=== PATIENT | female | born 1960 | race Caucasian/White ===

== ENCOUNTER 2016-07-02 22:10 | Inpatient (IN) | payer OTHER ==
[~2016-07-02] VITALS: Ht 165.1 cm; Wt 158.9 kg
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
--- NOTE | ~2016-07-02 | HC ---
[facility] [place] [address] CONSULTATION Name: ERLIN HICKMAN Room #: 209-P ADM IN M.R.#: [id number] Admission: 07/03/16 Attend Phys: Zaire Tatum MD Discharge: Date of : 62 Report #: [id number] THIS REPORT FOR: //name// CC: Zaire Tatum [facility] physician/PCP REASON FOR CONSULTATION: Chest pain. HISTORY OF PRESENT ILLNESS: The patient is a 56-year-old female who presents with new onset chest heaviness radiating to her back, worse with activity. She has also had some fluttering in her chest. She has had some mild shortness of breath, but denies any PND or orthopnea. She denies presyncope or syncope. REVIEW OF SYSTEMS: GENERAL: No fevers or chills. HEENT: No blurred vision. CARDIOVASCULAR: As above. PULMONARY: No productive cough. GASTROINTESTINAL: Some epigastric discomfort. No nausea, vomiting. GENITOURINARY: No dysuria. MUSCULOSKELETAL: No myalgias or arthralgias. ENDOCRINE: No heat or cold intolerance. PAST MEDICAL HISTORY: Asthma, obesity. PAST SURGICAL HISTORY: Cholecystectomy. FAMILY HISTORY: Noncontributory. SOCIAL HISTORY: Does not smoke. ALLERGIES: Include BIAXIN. MEDICATIONS: Tylenol, multivitamin. REVIEW OF SYSTEMS: As above. PHYSICAL EXAMINATION: VITAL SIGNS: Temperature 36.2, pulse 54, respirations 16, blood pressure 123/70, sats 94%. GENERAL: She is in no acute distress. She is morbidly obese. HEENT: Oropharynx is clear. NECK: Supple, with no thyromegaly. HEART: Regular rate and rhythm with normal S1, S2. No S3, S4. She does not have elevated jugular venous pressure. She has no sternal discomfort. LUNGS: Clear bilaterally. ABDOMEN: Soft, nontender, nondistended with no hepatosplenomegaly. [facility] [address] [place] [address] CONSULTATION Name: ERLIN HICKMAN Room #: 209-P [facility] IN [facility]#: [id number] Admission: 07/03/16 Attend Phys: Zaire Tatum MD Discharge: Date of : 62 Report #: [id number] EXTREMITIES: There is some 1+ lower extremity edema. She has 2+ pulses. NEUROLOGIC: Cranial nerves 2-12 are intact. LABORATORY DATA: White count 6.2, hemoglobin 12.1, platelets 234. Her chemistries, potassium 3.9, creatinine 0.9. Troponins are negative x 3. BNP is 89. Urine is negative. Extremity ultrasounds show no DVT. Chest x-ray shows no acute process. In summary, 12-lead EKG shows sinus rhythm with no ischemic changes. IMPRESSION: In summary, the patient is a 56-year-old female with a history of morbid obesity, presenting with new onset chest heaviness and tightness associated with exertion. I would like to order an echocardiogram to evaluate her left ventricular size and function. Given her symptoms suggestive of possible unstable angina, I recommended proceeding with a cardiac catheterization as I think given her morbid obesity, the nuclear stress test will be of limited utility. I have discussed the details of the procedure including the risks, which include but not limited to bleeding, vascular damage, stroke or MT. She understands these risks and is willing to proceed. We will plan on this tomorrow. <ELECTRONICALLY SIGNED> By: uGy Rashid MD 07/04/16 1523 1312 0027 Guy Rashid MD /nt
--- NOTE | ~2016-07-02 | CATHLAB ---
[facility] [place] [address] INVASIVE PROCEDURE REPORT Name: ERLIN HICKMAN Ruma Room #: 209-P [facility] IN .#: [id number] Admission: 07/03/16 Attend Phys: Ruma Mathur Discharge: 07/05/16 Date of : 62 Date of Service: 07/04/16 0917 Report #: [id number] THIS REPORT FOR: //name// CC: Zaire DALEY physician/PCP DATE OF SERVICE: 07/04/2016 CARDIAC CATHETERIZATION REPORT INDICATION: Unstable angina. Full risks, benefits and alternatives of cardiac catheterization were explained to the patient. All questions were answered. Informed consent was obtained. A Barbeau test was performed on the right radial artery. The right wrist area was prepped and draped in a sterile manner. Lidocaine was given subcutaneously. A 5-Latvian sheath was inserted into the right radial artery via modified Seldinger technique. Nitroglycerin and verapamil was injected through the sheath. 5000 units of heparin was introduced through peripheral IV. CORONARY ANATOMY: The left main artery is a large caliber vessel, with no flow-limiting lesions. The LAD is a moderate-sized caliber vessel, travelling down the anterior wall and terminating in the apex. There were no flow-limiting lesions in the LAD. There are several small diagonal arteries, with no flow-limiting lesions. The left circumflex artery branches off into one obtuse marginal artery. There were no flow-limiting lesions in the left circumflex artery. The RCA is a moderate to large size caliber vessel, dominant. It originates from the noncoronary cusp. There were no flow-limiting lesions in the RCA. There is a PDA and posterolateral branch, with no flow-limiting lesions. A left ventriculogram was performed revealing normal LV systolic function, ejection fraction of 60%. The LVEDP is 30 mmHg. There is no gradient across the outflow tract. IMPRESSION: 1. Angiographically normal coronary arteries. [facility] [address] [place] [address] INVASIVE PROCEDURE REPORT Name: JOHNJOSSIEERLIN Room #: 209-P [facility] IN M.R.#: [id number] Admission: 07/03/16 Attend Phys: Ruma Mathur Discharge: 07/05/16 Date of : 62 Date of Service: 07/04/16916 Report #: [id number] 2. Normal LV systolic function. 3. Recommend medical therapy. <ELECTRONICALLY SIGNED> By: Godwin Carter MD 07/07/16 0814 6 1247 Godwin Carter MD /nt
--- NOTE | ~2016-07-02 | EKG ---
[address] [place] [address] ELECTROCARDIOGRAM REPORT Name: ERLIN HICKMAN Room #: 209-P ADM IN M.R.#: [id number] Admission: 07/03/16 Attend Phys: Zaire Tatum MD Discharge: Date of : 62 Report #: [id number] THIS REPORT FOR: //name// [facility] ED Test Date: 2016-07-02 Test Time: 22:15:45 Pat Name: ERLIN HICKMAN Department: Room: 209 Gender: F [employer]: LU : 1960 Requested By: Norma Bradley Order Number: [id number] MD: Jayesh William Measurements Intervals [place] Rate: 71 P: 53 MI: 165 QRS: -2 QRSD: 112 T: 10 QT: 436 QTc: 474 Interpretive Statements Sinus rhythm No significant abnormality Compared to ECG 03/28/2013 11:46:11 No significant changes Electronically Signed On 07-03-2016 8:35:45 CDT by Jayesh William [email or web address] <ELECTRONICALLY SIGNED> By: Jayesh William MD, [facility] 07/03/16 0835 14 14 Jayesh William MD, [facility] /EPI
[~2016-07-02 22:10] MED LIST: ALEVE220 M1 PO; APAP500 PO; CLIMARA TOP; COLACE100 MG; FLAGYL500 MG PO; HYDROCODON-ACE1 EAC7; IBUPROFEN 600600 M1 PO; IRON325; KEFLEX500 MG; MULTIVITAMINS1 EAC7 PO; NORCO 5-325 TA1 EACH PO; PENICILLIN VK500 M1; PROAIR HFA8.5 GM INH; ULTRAM 50MG TAB50 MG PO
[2016-07-02 22:13] VITALS: BP 135/89
[2016-07-02] MEDS ORDERED: UNICOMPLEX M TA1 TA1 PO (22:21)
[2016-07-02 23:01] LABS: HEMATOCRIT 35.6 % (37.0-47.0); HEMOGLOBIN 12.1 gm/dL (12.0-15.0); MCH 30.9 pg (26.0-34.0); MCV 90.8 fL (80.0-100.0); PLATELET COUNT 234 thou/uL (150-400); RBC 3.92 mil/uL (4.20-5.00); RDW 13.8 % (10.5-14.5); WBC 6.2 thou/uL (4.0-11.0)
[2016-07-02 23:02] LABS: MANUAL DIFF YES
[2016-07-02 23:11] LABS: ANION GAP 7 mmol/L (7-16); BUN 15 mg/dL (7-18); CALCIUM 8.9 mg/dL (8.5-10.1); CHLORIDE 106 mmol/L (98-107); CO2 29 mmol/L (21-32); CREATININE 0.9 mg/dL (0.6-1.0); GLUCOSE 122 mg/dL (74-106); POTASSIUM 3.9 mmol/L (3.5-5.1); SODIUM 142 mmol/L (136-145)
[2016-07-02 23:17] LABS: NT-PRO BRAIN NAT PEPTIDE 89 pg/mL (<300); TROPONIN-I < 0.04 ng/mL (<0.04-0.07)
[2016-07-03] VITALS (7 sets, daily range): BP systolic 118–157; BP diastolic 70–92
[2016-07-03 00:03] LABS: ABSOLUTE NEUTROPHILS 3.6 thou/uL (1.4-8.2); TOTAL CELL COUNT 100
[2016-07-03 01:25] LABS: URINE BILIRUBIN NEGATIVE (Negative); URINE BLOOD NEGATIVE (Negative); URINE COLOR YELLOW; URINE GLUCOSE-RANDOM* NEGATIVE (Negative); URINE KETONES NEGATIVE (Negative); URINE LEUKOCYTES-REFLEX NEGATIVE (Negative); URINE PROTEIN (DIPSTICK) NEGATIVE (Negative); URINE SPECIFIC GRAVITY >= 1.030 (1.003-1.035); URINE UROBILINOGEN 0.2 E.U./dl (0.2-1.0)
[2016-07-03 02:59] LABS: SQUAMOUS >10 Many /LPF (0-3)
[2016-07-03 03:02] LABS: CASTS None Seen /LPF (None Seen); CRYSTALS None Seen /LPF (None Seen); URINE RBC None Seen /HPF (0-2); URINE WBC-REFLEX 0-5 Rare /HPF (0-5)
[2016-07-04] VITALS (17 sets, daily range): BP systolic 6–154; BP diastolic 7–91
[2016-07-04] MEDS ORDERED: PROTONIX40 M1 PO (14:32)
[2016-07-04] MEDS ORDERED: SERTRALINE HCL50 MG PO (14:32)
[2016-07-04] MEDS ORDERED: KEFLEX500 MG PO (14:33)
[2016-07-04] MEDS ORDERED: MOBIC15 MG PO (14:33)
[2016-07-05] VITALS (8 sets, daily range): BP systolic 131–138; BP diastolic 74–78
[2016-07-05 03:20] LABS: HEMATOCRIT 35.1 % (37.0-47.0); HEMOGLOBIN 11.8 gm/dL (12.0-15.0); MCHC 33.8 g/dL (28.0-37.0); MCV 91.9 fL (80.0-100.0); RBC 3.82 mil/uL (4.20-5.00); WBC 4.7 thou/uL (4.0-11.0)
[2016-07-05 03:27] LABS: CALCIUM 8.4 mg/dL (8.5-10.1); POTASSIUM 4.3 mmol/L (3.5-5.1)
== END 2016-07-05 17:42 | disposition home or self-care (01) | DRG 287 ==
LOC: ER 22:10 → EROBS 07-03 00:21 → 2N 07-03 00:21
PROVIDERS: Emergency Medicine; Internal Medicine Cardiovascular Disease
PROC: 4A023N7 Measurement of Cardiac Sampling and Pressure, Left Heart, Percutaneous Approach (ICD-10-PCS; principal; 2016-07-04)
PROC: B2111ZZ Fluoroscopy of Multiple Coronary Arteries using Low Osmolar Contrast (ICD-10-PCS; principal; 2016-07-04)
PROC: B2151ZZ Fluoroscopy of Left Heart using Low Osmolar Contrast (ICD-10-PCS; principal; 2016-07-04)
DX: R07.9 Chest pain, unspecified (principal); Z68.43 Body mass index [BMI] 50.0-59.9, adult; E66.01 Morbid (severe) obesity due to excess calories; J45.909 Unspecified asthma, uncomplicated; K21.9 Gastro-esophageal reflux disease without esophagitis; M25.572 Pain in left ankle and joints of left foot; F41.9 Anxiety disorder, unspecified; K44.9 Diaphragmatic hernia without obstruction or gangrene; Z90.49 Acquired absence of other specified parts of digestive tract; Z88.8 Allergy status to other drugs, medicaments and biological substances; Z91.040 Latex allergy status; Z79.899 Other long term (current) drug therapy
CPT/HCPCS: 10081